=== PATIENT | male | born 2000 | race Two or more races ===

== ENCOUNTER 2022-11-02 10:55 | Emergency (ER) | payer BC, MEDICAID ==
[~2022-11-02] VITALS: Ht 182.9 cm; Wt 81.6 kg
[2022-11-02] MEDS ORDERED: IBUP-1953 PO (11:46)
[2022-11-02] MEDS ORDERED: CEPH500C2 PO (11:46)
[2022-11-02 12:25] VITALS: BP 162/80
== END 2022-11-02 12:26 | disposition home or self-care (01) ==
LOC: ER 11:09
DX: N45.1 Epididymitis (principal); Z79.899 Other long term (current) drug therapy
CPT/HCPCS: 76870-TC